=== PATIENT | female | born 1980 | race African-American/Black ===

== ENCOUNTER 2017-10-29 15:07 | Emergency (ER) | payer OTHER ==
--- NOTE | 2017-10-29 15:49 | RAD ---
RIGHT ANKLE THREE VIEWS: 10/29/2017 HISTORY: Trauma. Fall. Pain. COMPARISON: None. FINDINGS: There is an obliquely oriented, nondisplaced fracture involving the distal right fibula/lateral malle olus, with prominently overlying soft tissue swelling. The talar dome and ankle mortise are intact. The distal fibular fracture demonstrates a spiral configuration on the lateral and oblique views. IMPRESSION: Obliquely oriented, spiral, nondisplaced, distal right fibula fracture. POS: [facility]
[2017-10-29] MEDS ORDERED: HYDROcodone/Acetaminophen 10/325 mg Tablet ONE (16:50)
[2017-10-29] MEDS ORDERED: cloNIDine 0.1 MG TAB ONE (17:26)
== END 2017-10-29 18:17 | disposition home or self-care (01) ==
LOC: ERS 15:07
DX: S82.64XA Nondisplaced fracture of lateral malleolus of right fibula, initial encounter for closed fracture (principal); E66.9 Obesity, unspecified; I10 Essential (primary) hypertension; Z79.899 Other long term (current) drug therapy; W01.0XXA Fall on same level from slipping, tripping and stumbling without subsequent striking against object, initial encounter; Y92.89 Other specified places as the place of occurrence of the external cause

== ENCOUNTER 2017-11-12 15:16 | Outpatient (CLI) | payer OTHER | END 2017-11-12 15:17 | disposition home or self-care (01) | LOC: BICULT 15:16 | PROVIDERS: ATTEND Family Medicine | DX: I10 Essential (primary) hypertension (principal) | CPT/HCPCS: 76700; 76770 ==

== ENCOUNTER 2017-12-26 09:16 | Outpatient (CLI) | payer OTHER | END 2017-12-26 09:17 | disposition home or self-care (01) | LOC: BICCT 09:16 | PROVIDERS: ATTEND Family Medicine | DX: I70.1 Atherosclerosis of renal artery (principal); E27.9 Disorder of adrenal gland, unspecified | CPT/HCPCS: 74174 ==

== ENCOUNTER 2018-06-05 08:07 | Outpatient (CLI) | payer OTHER ==
--- NOTE | 2018-06-05 11:17 | MRI ---
MRI ABDOMEN WITH AND WITHOUT IV CONTRAST: HISTORY: Adrenal mass. CORRELATION: CTA from 12/26/2017. FINDINGS: The liver, pancreas, left adrenal gland, and kidneys appear normal. The spleen measures 13.8 cm in l ength. No free air or free fluid is seen in the abdomen. The bone marrow signal is normal. The 3 cm right adrenal mass noted on the CT scan demonstrates an piislsc-at-ohvmwg CSI ratio of 0.71. A CSI ratio greater than or equal to 0.[address] wash-out test should be performed . IMPRESSION: 1. Mild splenomegaly. 2. Indeterminate right adrenal mass. CT scan of the abdomen with and without intravenous contrast, using the adrenal wash-out protocol, should be performed. POS: [facility]
[2018-06-05] MEDS ORDERED: Gadobenate Dimeglumine 529 MG/1 ML (20ML VIAL) ONE (14:25)
== END 2018-06-05 08:08 | disposition home or self-care (01) ==
LOC: TBSIIMAG 08:07
PROVIDERS: ATTEND Family Medicine
DX: E27.9 Disorder of adrenal gland, unspecified (principal); R16.1 Splenomegaly, not elsewhere classified
CPT/HCPCS: 74183; A9579

== ENCOUNTER 2018-06-26 09:55 | Outpatient (CLI) | payer OTHER ==
--- NOTE | 2018-06-26 13:23 | CT ---
CT ABDOMEN AND PELVIS WITH AND WITHOUT CONTRAST WITH ADRENAL WASHOUT PROTOCOL: HISTORY: Mass, right adrenal gland. COMPARISON: MRI from 06/05/[address] from 12/26/2017. FINDINGS: The bases are clear. No pericardial effusion. There is a well defined, ovoid right adrenal mass, measuring 2.5 x 2.7 x 3.2 cm (trans x AP x CC). T his has a pre-contrast Hounsfield unit measurement of 51, a post-contrast enhancement of 56 Hounsfiel d units, and a 15-minute delayed of 60 Hounsfield units. No significant washout. No other mass is appreciated. No other paraganglion mass is appreciated. The liver, spleen, and lef t adrenal gland are unremarkable. IMPRESSION: Right adrenal mass is unchanged in size from the 12/28/2017 examination and does not have imaging neela racteristics of a benign adrenal adenoma. Differential includes pheochromocytoma, metastatic disease , and adrenal cortical carcinoma. Of these, pheochromocytoma is most likely, in a patient of this ag e. Recommend correlation with underlying 24-hour urine fractionated metanephrine evaluation. An Iod ine-123 mIBG study may also be beneficial to evaluate for pheochromocytoma. POS: [facility]
== END 2018-06-26 09:56 | disposition home or self-care (01) ==
LOC: BICCT 09:55
PROVIDERS: ATTEND Student in an Organized Health Care Education/Training Program
DX: E27.9 Disorder of adrenal gland, unspecified (principal)
CPT/HCPCS: 74170

== ENCOUNTER 2018-07-16 11:19 | Outpatient (CLI) | payer OTHER ==
--- NOTE | 2018-07-17 16:21 | NM ---
I-123 MIBG SCAN 07/17/18/ HISTORY: Indeterminate right adrenal mass. RADIOPHARMACEUTICAL: 10.8 millicuries I-123 MIBG, IV. VIEWS OBTAINED: Anterior and posterior hole body with SPECT imaging of the abdomen. Imaging was obtained 24 hours pos t injection. COMPARISON: CT abdomen 06/26/18. FINDINGS: There is physiological uptake seen within the salivary glands, lungs, and liver. Vein activity is see n overlying the abdomen likely related to uptake within GI tract. SPECT imaging was also performed. T here is no abnormal uptake of radiotracer seen within the right adrenal gland mass. No other areas of abnormal uptake of radiotracer are visualized. IMPRESSION: 1. No abnormal uptake of radiotracer is seen within the right adrenal gland lesion to suggest a pheochromocytoma. This lesion also does not demonstrate typical imaging findings of an adrenal corti geri carcinoma. While metastatic lesion is a differential consideration, this is thought less likely i n a patient of this young age and absence of a history of a neoplasm. The findings are probably rela héctor to a lipid poor atypical adrenal adenoma; however, followup MRI evaluation of the abdomen is darin mmended in six months for further evaluation to document stability of the right adrenal lesion at 2. Findings discussed with Dr. Rodriguez on 07/17/18 at 1543 hours. Plasma metanephrine testing is reported to be normal. POS: [facility]
== END 2018-07-16 11:20 | disposition home or self-care (01) ==
LOC: NM 11:19
PROVIDERS: ATTEND Student in an Organized Health Care Education/Training Program
DX: E27.9 Disorder of adrenal gland, unspecified (principal)
CPT/HCPCS: 78075; A9582